=== PATIENT | male | born 1960 | race African-American/Black ===

== ENCOUNTER 2017-03-21 05:04 | Observation (INO) | payer OTHER ==
--- NOTE | ~2017-03-21 | HP ---
History And Physical [place] [id number] [facility] [place]. [address] NAME: DONNELL FARIAS : 56 STATUS : ADM Prince PAT#: [id number] AGE: 56 ADM/REG DATE : 03/21/17 MR#: [id number] REPORT SERV DATE: 03/21/17 DICTATED BY: PREMA GARCIA DATE: 03/21/17 REPORT STATUS : Draft TRANSCRIBED BY: MODDeanna DATE: 03/21/17 DATE OF ADMISSION: 03/21/2017 CHIEF COMPLAINT: Substernal chest tightness. HISTORY OF PRESENT ILLNESS: This is a 56-year-old pleasant black gentleman with no known history of CAD, who states that he awoke around midnight last night while in bed with a substernal chest tightness that did not radiate elsewhere. There is no exertional component described. He describes associated lightheadedness. Denies shortness of breath, nausea, diaphoresis, or belching. At its most intense, the chest pain was rated at 8/10. At the time of interview in the [facility], he is pain free. He states the episode lasted several hours in duration and was relieved by aspirin and nitroglycerin sublingual x1, provided by EMS. The patient denies any personal history of myocardial infarction, stroke, DVT, or pulmonary embolus. The patient denies any recent fever or chills. No palpitations. No syncopal episodes. Denies PND or orthopnea. Of note, the patient is employed as a [employer]. He states he has never had any exertional chest pain while at work or otherwise and no previous similar event. PAST MEDICAL HISTORY: 1. Denies hypertension, dyslipidemia, or diabetes. 2. Cholesterol per PCP. SURGICAL HISTORY: Left hand surgery. SOCIAL HISTORY: He is single with one child. He is employed as a OPTOMETRY DOCTOR. Does not have a structured exercise routine. Denies tobacco. Consumes two drinks a week. Occasionally smokes marijuana, most recently one month ago. FAMILY HISTORY: No embolic events reported in the first-degree relatives. REVIEW OF SYSTEMS: A 14-point review of systems was performed, significant for HPI. No other contributory diagnoses identified. ALLERGIES: NO KNOWN DRUG ALLERGIES. HOME MEDICATIONS: None. PHYSICAL EXAMINATION: BLOOD PRESSURE: 130/68, PULSE: 60, RESPIRATIONS: 16, TEMPERATURE: 99.0, O2 saturation 99% on room air. HEIGHT 5 feet 6 inches, WEIGHT: 181 pounds. BMI 29.3. GENERAL: Cooperative, in no apparent distress. HEENT: Pupils 2 mm, sclera nonicteric. Nares patent. Moist mucous membranes. No xanthelasma. History And Physical [place] [address] [place]. [address] NAME: DONNELL FARIAS : 56 STATUS : ADM Prince PAT#: [id number] AGE: 56 ADM/REG DATE : 03/21/17 MR#: [id number] REPORT SERV DATE: 03/21/17 DICTATED BY: PREMA GARCIA DATE: 03/21/17 REPORT STATUS : Draft TRANSCRIBED BY: OLAF DATE: 03/21/17 NECK: Trachea midline, no thyromegaly. No JVD. No bruits. LYMPH: No cervical lymphadenopathy. No supraclavicular lymphadenopathy. RESPIRATORY: Unlabored respirations. Breath sounds clear bilaterally to posterior auscultation. No wheezes or rhonchi. CARDIOVASCULAR: Regular rate. No murmur, rub or gallop appreciated. Extremities without edema. Pulses 2+ bilaterally. ABDOMEN: Soft, nontender, nondistended, normal bowel sounds auscultated throughout. No organomegaly. SKIN: Warm, dry extremities. No pallor, or cyanosis. PSYCHIATRIC: Appropriate affect. Alert, oriented x3. LABORATORY DATA: Troponin less than 0.02, third pending. Potassium 3.5, BUN 12, creatinine 1.06, glucose 77, magnesium 2.4. WBC 7.0, hemoglobin 12.7, hematocrit 38.0, platelet count 345,000. IMAGING: EKG: Sinus rhythm with nonspecific T-waves. ASSESSMENT AND PLAN: 1. Substernal chest pain in a patient with few risk factors. Third troponin is pending. If negative, the patient will be sent for an MPI this morning, home if low risk and no ischemia. If anything suggestive of ischemia, Cardiology referral will be initiated, otherwise, the patient will be asked to follow up with PCP in one to two weeks with all studies being sent to that office. 2. Further recommendations forthcoming from stress test when performed. JARVIS CLARENCE Varela, CATHY / [id number] CC: CLARENCE Varela, KANDICE-FRANNIE Arechiga M.D.
[2017-03-21 04:20] LABS: BASOPHILS 0.1 %; BASOPHILS ABSOLUTE 0.01 10/3/uL (0.0-0.16); EOSINOPHILS 0.7 %; EOSINOPHILS ABSOLUTE 0.05 10/3/uL (0.0-0.53); ER CBC TAT 0 Hrs 05 Mins; HEMOGLOBIN 12.7 g/dL (13.6-17.8); IMMATURE GRANULOCYTES 0.1 %; IMMATURE GRANULOCYTES ABSOLUTE 0.01 10/3/uL (0.0-0.11); LYMPHOCYTES 26.9 %; LYMPHOCYTES ABSOLUTE 1.87 10/3/uL (0.67-4.30); MEAN CORPUS HGB CONC 33.4 g/dL (32.0-36.0); MEAN CORPUSCULAR HEMOGLOB 28.7 pg (26.0-34.0); MEAN CORPUSCULAR VOLUME 85.8 fL (80-100); MEAN PLATELET VOLUME 9.8 fL (9.2-13.0); MONOCYTES 8.5 %; MONOCYTES ABSOLUTE 0.59 10/3/uL (0.21-1.20); NEUTROPHILS 63.7 %; NEUTROPHILS ABSOLUTE 4.42 10/3/uL (2.02-8.40); PLATELET COUNT 345 10/3/uL (150-400); RBC DISTRIBUTION WIDTH 14.2 % (12.0-16.0); RED CELL COUNT 4.43 10/6/uL (4.7-6.1)
[2017-03-21 04:30] LABS: MANUAL DIFF NO %
[2017-03-21 04:37] LABS: BUN (BLOOD UREA NITROGEN) 12 MG/DL (6-23); CALCIUM, SERUM 9.1 MG/DL (8.5-10.4); CHEST PAIN PROFILE TAT 0 Hrs 22 Mins; CHLORIDE, SERUM 107 MMOL/L (96-112); CO2 (CARBON DIOXIDE) 28 MMOL/L (24-34); CREATININE 1.06 MG/DL (0.70-1.30); GFR AFRICAN AMERICAN 89 ML/MIN (>=60); GFR NON AFRICAN AMERICAN 77 ML/MIN (>=60); GLUCOSE, SERUM 77 MG/DL (60-99); POTASSIUM, SERUM 3.5 MMOL/L (3.5-5.3); SODIUM, SERUM 143 MMOL/L (135-148); TROPONIN I 0.02 NG/ML (<0.05)
[2017-03-21 04:40] LABS: INTERNATIONAL NORMAL RATI 1.1 UNITS (-); PARTIAL THROMBO TIME 27.2 SEC (22.5-37.2); PROTIME (NOT ORD) 13.6 SEC (12.0-14.5)
[~2017-03-21 05:04] MED LIST: *DENIES
== END 2017-03-21 17:20 | disposition home or self-care (01) ==
LOC: ER 05:04 → CDU1 05:19
PROVIDERS: Nurse Practitioner
DX: R07.2 Precordial pain (principal); Z98.890 Other specified postprocedural states
CPT/HCPCS: 71010; 78452; 80048; 83735; 84484; 85025; 85610; 85730; 93005; 93017; 93308; 99285; A9270-GY; A9502; G0378